=== PATIENT | male | born 1970 | race Two or more races ===

== ENCOUNTER 2025-06-09 12:02 | Emergency (ER) | payer OTHER ==
[~2025-06-09] VITALS: Ht 160 cm; Wt 63.4 kg
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
--- NOTE | 2025-06-09 13:36 | DVH ---
INDICATION: trauma COMPARISON: None TECHNIQUE: 2 views of the thoracic spine were obtained. FINDINGS: The thoracic vertebral alignment is normal. The intervertebral disc spaces are well-maintained. No significant facet arthropathy is noted. No acute fracture, vertebral compression deformity or aggressive osseous lesions. The imaged thorax and abdomen are grossly unremarkable. IMPRESSION: No acute fracture.
--- NOTE | 2025-06-09 13:36 | DVH ---
INDICATION: trauma COMPARISON: None TECHNIQUE: 5 views of the lumbar spine were obtained. FINDINGS: The lumbar vertebral alignment is normal. The intervertebral disc spaces are well-maintained. No significant facet arthropathy is noted. No acute fracture, vertebral compression deformity or aggressive osseous lesions. The paravertebral soft tissues are grossly unremarkable. IMPRESSION: No acute fracture.
[2025-06-09] MEDS ORDERED: IBUP-1455 PO (14:10)
[2025-06-09] MEDS ORDERED: METH-1181 PO (14:10)
[2025-06-09 14:15] VITALS: BP 110/76; PULSE 74; RESP 20; TEMP 97.9; O2SAT 97
== END 2025-06-09 14:18 | disposition home or self-care (01) ==
LOC: ER 12:02
DX: M54.50 Low back pain, unspecified (principal); V89.2XXA Person injured in unspecified motor-vehicle accident, traffic, initial encounter; Y93.89 Activity, other specified; Y92.410 Unspecified street and highway as the place of occurrence of the external cause; Y99.8 Other external cause status
CPT/HCPCS: 72070; 72100